=== PATIENT | female | born 1970 | race American Indian/Alaskan Native ===

== ENCOUNTER 2017-12-10 12:23 | Emergency (ER) | payer SELFPAY ==
[2017-12-10] MEDS ORDERED: NORVASC PO ONE (13:57)
--- NOTE | 2017-12-10 13:57 | Emergency Department Report ---
ED General Adult HPI - General Chief complaint: High BP Stated complaint: HYPERTENSION Time Seen by Provider: 12/10/17 13:53 Source: patient Mode of arrival: Ambulatory Limitations: No Limitations - History of Present Illness Initial comments: PT RAN OUT OF MEDS SHE HAS NO PCP SHE HAD A TABLE FALL ON HER L FOOT WHILE AT WORK AMBULATORY NO CP NO SOB -: Gradual Location: lower extremity (FOOT PAIN) Radiation: non-radiation Quality: aching Consistency: constant Improves with: none Associated Symptoms: denies other symptoms. denies: confusion, chest pain, cough, diaphoresis, fever/chills, headaches, loss of appetite, malaise, nausea/ vomiting, rash, seizure, shortness of breath, syncope, weakness Treatments Prior to Arrival: none - Related Data Previous Rx's Medication Instructions Recorded Last Taken Type Amlodipine Besylate [Norvasc] 5 mg PO DAILY #30 tablet 12/10/17 Unknown Rx Allergies Allergy/AdvReac Type Severity Reaction Status Date / Time No Known Allergies Allergy Verified 11/05/15 16:27 ED Review of Systems ROS: Stated complaint: HYPERTENSION Other details as noted in HPI Comment: All other systems reviewed and negative Constitutional: denies: chills Eyes: denies: eye pain ENT: denies: throat pain Respiratory: denies: cough, orthopnea Cardiovascular: as per HPI, other (INC BP). denies: chest pain, palpitations, dyspnea on exertion, orthopnea, edema, syncope, paroxysmal nocturnal dyspnea Endocrine: no symptoms reported. denies: excessive sweating, intolerance to cold, intolerance to heat Gastrointestinal: denies: nausea, vomiting Genitourinary: denies: urgency, dysuria Musculoskeletal: other (FOOT PAIN). denies: back pain Skin: denies: lesions Neurological: denies: headache, weakness, numbness, paresthesias, confusion, abnormal gait, vertigo Psychiatric: denies: anxiety, depression Hematological/Lymphatic: denies: easy bleeding ED Past Medical Hx - Past Medical History Hx Hypertension: Yes - Surgical History Past Surgical History?: No Additional Surgical History: - Family History Family history: no significant - Social History Smoking Status: Never Smoker Substance Use Type: None - Medications Home Medications: Home Medications Medication Instructions Recorded Confirmed Last Taken Type Amlodipine Besylate [Norvasc] 5 mg PO DAILY #30 tablet 12/10/17 Unknown Rx ED Physical Exam - General Limitations: No Limitations General appearance: alert - Head Head exam: Present: atraumatic - Eye Eye exam: Present: normal appearance, PERRL Pupils: Present: normal accommodation - ENT ENT exam: Present: normal exam, mucous membranes moist - Neck Neck exam: Present: normal inspection - Respiratory Respiratory exam: Present: normal lung sounds bilaterally - Cardiovascular Cardiovascular Exam: Present: regular rate - GI/Abdominal GI/Abdominal exam: Present: soft, normal bowel sounds - Rectal Rectal exam: Present: deferred - Extremities Exam Extremities exam: Present: normal inspection, full ROM, normal capillary refill. Absent: tenderness, pedal edema, joint swelling, calf tenderness - Expanded Lower Extremity Exam Left Lower Leg exam: Present: normal inspection Ankle exam: Present: normal inspection Foot/Toe exam: Present: normal inspection, full ROM. Absent: tenderness, swelling, abrasion, laceration, ecchymosis, deformity, crepidus, dislocation, erythema, amputation, puncture wound, foreign body, calcaneal tenderness, tenderness at base of 5th metatarsal, nail avulsion, subungual hematoma Neuro vascular tendon exam: Present: no vascular compromise. Absent: pulse deficit, abnormal cap refill, motor deficit, sensory deficit, tendon deficit, extremity cold to touch, pallor, foot drop Gait: Negative: observed and normal, not tested/not observed - Back Exam Back exam: Present: normal inspection, full ROM - Neurological Exam Neurological exam: Present: alert, oriented X3, CN II-XII intact, normal gait, reflexes normal, other (NO FOCAL NEURO DEF) - Psychiatric Psychiatric exam: Present: normal affect, normal mood - Skin Skin exam: Present: warm, dry, intact, normal color. Absent: rash ED Course Vital Signs 12/10/17 12/10/17 12:36 14:16 Temperature 99.4 F Pulse Rate 70 68 Respiratory 18 Rate Blood Pressure 208/104 215/118 O2 Sat by Pulse 100 Oximetry - Reevaluation(s) Reevaluation #1: 12/10/17 14:18 NO PHYSICAL COMPLAINTS X FOOT PAIN SP TABLE FALLING ON IT AT WORK HAS BEEN MONITORING BP AT HOME- NO CP, NO SOB AMBULATORY TAKING PO ED Medical Decision Making - Radiology Data Radiology results: report reviewed, image reviewed - Medical Decision Making MED REFILL AND REFERRALS XRAY FOR FOOT - Differential Diagnosis FOOT FX V CONTUSION Critical care attestation.: If time is entered above; I have spent that time in minutes in the direct care of this critically ill patient, excluding procedure time. ED Disposition Clinical Impression: Hypertension, Medication refill, Contusion Disposition: TO HOME OR SELFCARE Is pt being admited?: No Does the pt Need Aspirin: No Condition: Stable Instructions: Hypertension (ED) Additional Instructions: FOLLOW UP WITH PCP SEE BELOW LOW SALT DIET NO FRIED FOOD NO FAST FOOD HYDRATE WELL WITH WATER TAKE MED DAILY IN AM MOTRIN OR TYLENOL FOR FOOT PAIN Prescriptions: Amlodipine Besylate [Norvasc] 5 mg PO DAILY #30 tablet Referrals: [facility] [Outside] - 3-5 Days [facility] [Outside] - 3-5 Days [facility] [Outside] - 3-5 Days [facility] [Outside] - 3-5 Days [facility] [Outside] - 3-5 Days Time of Disposition: 14:00
[2017-12-10] MEDS ORDERED: CATAPRES PO ONE (16:01)
[2017-12-10 16:02] VITALS: BP 200/108
--- NOTE | 2017-12-10 16:38 | XRay Report ---
FINAL REPORT EXAM: XR FOOT 2V LT HISTORY: TABLE FELL ON FOOT COMPARISON: None. TECHNIQUE: Two views of the left foot FINDINGS: There is normal alignment without acute fracture or dislocation. There is a small plantar calcaneal spur. The overlying soft tissues are intact. IMPRESSION: No acute bony abnormality of the left foot.
== END 2017-12-10 16:22 | disposition home or self-care (01) ==
LOC: ED 12:23
DX: S90.32XA Contusion of left foot, initial encounter (principal); I10 Essential (primary) hypertension; Z76.0 Encounter for issue of repeat prescription; W20.8XXA Other cause of strike by thrown, projected or falling object, initial encounter; Y93.89 Activity, other specified; Y92.89 Other specified places as the place of occurrence of the external cause; Y99.8 Other external cause status